=== PATIENT | female | born 2000 | race Two or more races ===

== ENCOUNTER 2022-01-20 20:49 | Emergency (ER) | payer OTHER ==
[~2022-01-20] VITALS: Ht 172.7 cm; Wt 90.7 kg
[2022-01-20] MEDS ORDERED: CLEOCIN HCL300 MG PO (21:44)
[2022-01-20] MEDS ORDERED: KETO10TA2 PO (21:44)
[2022-01-20] MEDS ORDERED: AMOX-CLAV 875-1 EACH PO (21:44)
== END 2022-01-20 22:11 | disposition home or self-care (01) ==
LOC: ER 20:49
DX: N76.0 Acute vaginitis (principal); N80.3 Endometriosis of pelvic peritoneum

== ENCOUNTER 2022-04-17 11:34 | Outpatient (CLI) | payer OTHER ==
[~2022-04-17 11:34] MED LIST: AMOX-CLAV 875-1 EACH PO; CLEOCIN HCL300 MG PO; KETO10TA2 PO
== END 2022-04-17 11:35 | disposition home or self-care (01) ==
LOC: LAB 11:34
PROVIDERS: ATTEND Preventive Medicine Occupational Medicine
DX: U07.1 COVID-19 (principal)